=== PATIENT | male | born 2000 | race African-American/Black ===

== ENCOUNTER 2023-07-29 13:39 | Emergency (ER) | payer OTHER ==
[2023-07-29 14:12] VITALS: BP 115/75; PULSE 118; RESP 22; TEMP 99.9; BMI 26.7
[2023-07-29] MEDS ORDERED: KETOROLAC TROMETHAMINE 30 MG/1 ML VIAL IM ONE (14:42)
[2023-07-29] MEDS ORDERED: KETOROLAC TROMETHAMINE 30 MG/1 ML VIAL ONE (14:43)
== END 2023-07-29 16:20 | disposition home or self-care (01) ==
LOC: JERFT 13:39
PROC: 3E0233Z Introduction of Anti-inflammatory into Muscle, Percutaneous Approach (ICD-10-PCS; principal; 2023-07-29)
DX: R05.9 Cough, unspecified (principal); R09.89 Other specified symptoms and signs involving the circulatory and respiratory systems; J02.9 Acute pharyngitis, unspecified; M79.10 Myalgia, unspecified site; R68.83 Chills (without fever); J06.9 Acute upper respiratory infection, unspecified; Z20.822 Contact with and (suspected) exposure to COVID-19
CPT/HCPCS: 0241U-QW; 71046-TC-FY; 87651; 99284-25

== ENCOUNTER 2023-08-03 11:36 | Inpatient (IN) | payer OTHER ==
[2023-08-03] MEDS ORDERED: SODIUM CHLORIDE 0.9% 500 ML INFUS.BAG IV ONE (14:01)
[2023-08-03 15:24] LABS: VENOUS BASE EXCESS -16.1 mmol/L (-2-2); VENOUS O2 SATURATION 44.9 % (70-80); VENOUS PCO2 29.2 mmHg (38-52)
[2023-08-03 15:26] LABS: VENOUS PH 7.18 (7.310-7.410)
[2023-08-03 15:36] LABS: HEMATOCRIT 46.9 % (35.4-49); HEMOGLOBIN 15.8 GM/dL (11.7-16.9); MCH 27.9 pg (25.7-33.7); MCHC 33.7 g/dl (32.0-35.9); MEAN CELL VOLUME 82.9 fl (80-96); MEAN PLT VOLUME 8.8 fl (7.5-11.1); PLATELET COUNT 293 10^3/uL (134-434); RBC 5.66 M/mm3 (4.00-5.60); WHITE BLOOD COUNT 14.4 K/mm3 (4.0-10.0)
[2023-08-03] MEDS ORDERED: SODIUM CHLORIDE 1,000 ML IV STA (15:53)
[2023-08-03] MEDS ORDERED: SODIUM CHLORIDE 0.9%/KCL 20 MEQ/1,000 ML INFUS.BAG IV SCH (16:00)
[2023-08-03 16:04] LABS: POTASSIUM 4.1 mmol/L (3.5-5.1)
[2023-08-03 16:06] LABS: CALCIUM 9.3 mg/dL (8.5-10.1)
[2023-08-03 16:07] LABS: ALBUMIN 2.3 g/dl (3.4-5.0); BLOOD UREA NITROGEN 15.6 mg/dL (7-18)
[2023-08-03 16:10] LABS: CREATININE 1.5 mg/dL (0.55-1.3)
[2023-08-03 16:12] LABS: BILIRUBIN,TOTAL 1.1 mg/dL (0.2-1); TOT PROT 7.6 g/dl (6.4-8.2)
[2023-08-03 16:19] LABS: ANISOCYTOSIS 1+; MACROCYTOSIS 0
[2023-08-03 16:31] LABS: MAGNESIUM 1.8 mg/dL (1.8-2.4)
[2023-08-03 16:35] LABS: PHOSPHOROUS 2.2 mg/dL (2.5-4.9)
[2023-08-03] MEDS ORDERED: MAGNESIUM SULFATE IN WATER 2 GM/50 ML IVPB IVPB ONE ×2 (16:40→17:24)
[2023-08-03] MEDS ORDERED: VANCOMYCIN 1,000 MG in DEXTROSE 5%-WATER - 250 ML IVPB ONE (17:43)
[2023-08-03] MEDS ORDERED: PIPERACILLIN/TAZOB 4.5 GM 4.5 GM in DEXTROSE 5%-WATER 100 ML IVPB ONE (17:43)
[2023-08-03] MEDS ORDERED: VANCOMYCIN 1 GRAM (PRE-DOCKED) 1,000 MG/250 ML BAG IVPB ONE (18:16)
[2023-08-03] MEDS ORDERED: PIPERACILLIN/TAZOB 3.375 GM 3.375 GM/50 ML BAG IVPB ONE (18:16)
[2023-08-03] MEDS ORDERED: PIPERACILLIN/TAZOB 4.5 GM 4.5 GM/100 ML BAG IVPB ONE (18:22)
[2023-08-03 19:01] LABS: VENOUS BASE EXCESS -19.3 mmol/L (-2-2); VENOUS O2 SATURATION 79.9 % (70-80); VENOUS PCO2 24.7 mmHg (38-52)
[2023-08-03 19:08] LABS: VENOUS PH 7.132 (7.310-7.410)
[2023-08-03] MEDS ORDERED: KCL 10 MEQ IVPB 20 MEQ/200 ML INFUS.BAG IVPB ONE (19:17)
[2023-08-03 19:22] LABS: CHLORIDE 98 mmol/L (98-107); SODIUM 125 mmol/L (136-145)
[2023-08-03 19:25] LABS: CALCIUM 8.7 mg/dL (8.5-10.1); CO2 9 mmol/L (21-32)
[2023-08-03 19:26] LABS: BLOOD UREA NITROGEN 15.9 mg/dL (7-18); GLUCOSE,RANDOM 315 mg/dL (74-106); MAGNESIUM 2.3 mg/dL (1.8-2.4)
[2023-08-03] MEDS: KCL 10 MEQ IVPB 10 MEQ/100 ML INFUS.BAG IVPB SCH ×2 (19:26→21:43)
[2023-08-03 19:29] LABS: CREATININE 1.5 mg/dL (0.55-1.3)
[2023-08-03] MEDS ORDERED: LACTATED RINGERS SOLUTION 1000 ML INFUS.BAG IV ONE ×2 (19:31→20:13)
[2023-08-03 19:34] LABS: ANION GAP 17 mmol/L (4-13); POTASSIUM 6.2 mmol/L (3.5-5.1)
[2023-08-03] MEDS ORDERED: ALBUTEROL SO4 2.5/IPRATROPIUM 0.5 INH SOL 3 ML VIAL.NEB. NEB ONE (20:09)
[2023-08-03] MEDS: ALBUTEROL SO4 2.5/IPRATROPIUM 0.5 INH SOL 3 ML VIAL.NEB. NEB PRN (20:17)
[2023-08-03] MEDS ORDERED: DEXTROSE 50%-WATER - 25 GM/50 ML VIAL IVPUSH PRN (20:26)
[2023-08-03] MEDS ORDERED: INSULIN REGULAR 100 UNITS in SODIUM CHLORIDE 99 ML IVPB SCH (20:30)
[2023-08-03 21:16] LABS: BLOOD UREA NITROGEN 16.1 mg/dL (7-18); CALCIUM 8.1 mg/dL (8.5-10.1)
[2023-08-03 21:20] LABS: CREATININE 1.3 mg/dL (0.55-1.3)
[2023-08-03] MEDS ORDERED: INSULIN REGULAR HUMAN 100 UNITS/ML *VIAL ONE (21:25)
[2023-08-03] MEDS: CHLORHEXIDINE GLUCONATE 4% CLEANSER FOR DECOLONIZATION TP SCH (21:44)
[2023-08-03] MEDS ORDERED: OSELTAMIVIR PHOSPHATE 45 MG CAPSULE PO SCH (22:00)
[2023-08-03] MEDS: MUPIROCIN 2% TOPICAL OINTMENT FOR DECOLONIZATION NS SCH (22:17)
[2023-08-03] MEDS ORDERED: SODIUM CHLORIDE 1,000 ML IV SCH (22:30)
[2023-08-04] MEDS: D5-1/2NS+20 MEQ KCL - 20 MEQ/1,000 ML INFUS.BAG IV SCH ×2 (00:47→08:20)
[2023-08-04] MEDS: ALBUTEROL SO4 2.5/IPRATROPIUM 0.5 INH SOL 3 ML VIAL.NEB. NEB PRN (01:00)
[2023-08-04 02:31] LABS: CHLORIDE 102 mmol/L (98-107); POTASSIUM 3.6 mmol/L (3.5-5.1); SODIUM 133 mmol/L (136-145)
[2023-08-04 02:33] LABS: BLOOD UREA NITROGEN 13.6 mg/dL (7-18); GLUCOSE,RANDOM 205 mg/dL (74-106); MAGNESIUM 1.7 mg/dL (1.8-2.4)
[2023-08-04 02:36] LABS: CREATININE 1.2 mg/dL (0.55-1.3)
[2023-08-04 02:39] LABS: ANION GAP 18 mmol/L (4-13); CO2 14 mmol/L (21-32); PHOSPHOROUS 0.9 mg/dL (2.5-4.9)
[2023-08-04] MEDS ORDERED: MAGNESIUM SULFATE IN WATER 2 GM/50 ML IVPB IVPB ONE (03:45)
[2023-08-04] MEDS: KCL 10 MEQ IVPB 10 MEQ/100 ML INFUS.BAG IVPB SCH ×6 (03:54→12:15)
[2023-08-04] MEDS ORDERED: POTASSIUM PHOSPHATE 30 MM in SODIUM CHLORIDE 250 ML IVPB ONE ×2 (05:00→13:30)
[2023-08-04 06:28] LABS: HEMATOCRIT 36.6 % (35.4-49); HEMOGLOBIN 12.6 GM/dL (11.7-16.9); MCH 27.4 pg (25.7-33.7); MCHC 34.4 g/dl (32.0-35.9); MEAN CELL VOLUME 79.7 fl (80-96); MEAN PLT VOLUME 7.8 fl (7.5-11.1); PLATELET COUNT 269 10^3/uL (134-434); RDW 14.6 % (11.9-15.9); WHITE BLOOD COUNT 12.4 K/mm3 (4.0-10.0)
[2023-08-04 06:45] LABS: POTASSIUM 3.6 mmol/L (3.5-5.1)
[2023-08-04 06:46] LABS: CALCIUM 8.1 mg/dL (8.5-10.1)
[2023-08-04 06:47] LABS: BLOOD UREA NITROGEN 11.2 mg/dL (7-18)
[2023-08-04 06:50] LABS: CREATININE 1.1 mg/dL (0.55-1.3)
[2023-08-04] MEDS: MUPIROCIN 2% TOPICAL OINTMENT FOR DECOLONIZATION NS SCH ×2 (09:21→21:33)
[2023-08-04 09:58] LABS: ANISOCYTOSIS 0; MACROCYTOSIS 0
[2023-08-04] MEDS ORDERED: D5-1/2NS+20 MEQ KCL - 20 MEQ/1,000 ML INFUS.BAG IV SCH (10:02)
[2023-08-04 11:08] LABS: EPI CELLS 14 /uL (0-25.1); HYALINE CASTS 3 /uL (0-3.1); PH,URINE 5.5 (5.0-8.0); URINE APPEARANCE CLEAR; URINE BACTERIA 0 /uL (0-1359); URINE BILIRUBIN NEGATIVE (NEGATIVE); URINE COLOR YELLOW; URINE GLUCOSE (UA) 3+ (NEGATIVE); URINE KETONE 3+ (NEGATIVE); URINE LEUK ESTERASE NEGATIVE (NEGATIVE); URINE NITRITE NEGATIVE (NEGATIVE); URINE PROTEIN 1+ (NEGATIVE); URINE RBC 40 /uL (0-23.9)
[2023-08-04 11:17] LABS: CHLORIDE 106 mmol/L (98-107); POTASSIUM 3.5 mmol/L (3.5-5.1); SODIUM 135 mmol/L (136-145)
[2023-08-04 11:20] LABS: CALCIUM 8.4 mg/dL (8.5-10.1)
[2023-08-04 11:21] LABS: ANION GAP 10 mmol/L (4-13); CO2 19 mmol/L (21-32); GLUCOSE,RANDOM 194 mg/dL (74-106); MAGNESIUM 1.8 mg/dL (1.8-2.4)
[2023-08-04 11:23] LABS: SGPT/ALT 32 U/L (13-61)
[2023-08-04 11:24] LABS: CREATININE 1.1 mg/dL (0.55-1.3); SGOT/AST 59 U/L (15-37)
[2023-08-04 11:25] LABS: BILIRUBIN,TOTAL 0.8 mg/dL (0.2-1)
[2023-08-04 11:28] LABS: BLOOD UREA NITROGEN 10.1 mg/dL (7-18)
[2023-08-04 11:33] LABS: URINE WBC 89.3 /uL (0-25.8)
[2023-08-04 11:44] LABS: ALBUMIN 1.7 g/dl (3.4-5.0); ALK PHOS 266 U/L (45-117); PHOSPHOROUS 0.7 mg/dL (2.5-4.9); TOT PROT 5.4 g/dl (6.4-8.2)
[2023-08-04] MEDS ORDERED: POTASSIUM PHOSPHATE 30 MM in SODIUM CHLORIDE 500 ML IVPB ONE (11:53)
[2023-08-04] MEDS: INSULIN (LEVEMIR) 100 UNITS/ML UNITS SQ SCH ×2 (15:44→21:33)
[2023-08-04 16:09] LABS: CHLORIDE 109 mmol/L (98-107); POTASSIUM 3.6 mmol/L (3.5-5.1); SODIUM 138 mmol/L (136-145)
[2023-08-04 16:11] LABS: ALBUMIN 1.7 g/dl (3.4-5.0); CALCIUM 8.2 mg/dL (8.5-10.1)
[2023-08-04 16:12] LABS: ANION GAP 8 mmol/L (4-13); BLOOD UREA NITROGEN 8.2 mg/dL (7-18); CO2 21 mmol/L (21-32); GLUCOSE,RANDOM 189 mg/dL (74-106); MAGNESIUM 1.7 mg/dL (1.8-2.4)
[2023-08-04 16:15] LABS: SGOT/AST 107 U/L (15-37); SGPT/ALT 42 U/L (13-61)
[2023-08-04 16:17] LABS: BILIRUBIN,TOTAL 0.8 mg/dL (0.2-1); TOT PROT 5.1 g/dl (6.4-8.2)
[2023-08-04 16:18] LABS: ALK PHOS 280 U/L (45-117)
[2023-08-04 16:22] LABS: PHOSPHOROUS 1.1 mg/dL (2.5-4.9)
[2023-08-04] MEDS ORDERED: MAGNESIUM SULF 50% (8.12 MEQ/2 ML-1 GM VIAL) IVPB ONE (16:48)
[2023-08-04] MEDS: ACETAMINOPHEN 1000 MG/100 ML BAG IVPB PRN (16:49)
[2023-08-04] MEDS: NAPH,MB-DB/K PH,MBDB POWDER PACKET PO SCH ×2 (17:22→21:33)
[2023-08-04] MEDS ORDERED: INSULIN (NOVOLOG) ASPART 100 UNITS/ML 10ML VIAL ONE (17:44)
[2023-08-04] MEDS: INSULIN ASPART SLIDING SCALE (NOVOLOG) 1 VIAL SQ SCH ×2 (17:45→21:31)
[2023-08-04] MEDS: LACTATED RINGERS SOLUTION 1,000 ML/1,000 ML INFUS.BAG IV SCH (18:30)
[2023-08-04] MEDS: CHLORHEXIDINE GLUCONATE 4% CLEANSER FOR DECOLONIZATION TP SCH (21:33)
[2023-08-04] MEDS ORDERED: INSULIN (LEVEMIR) 100 UNITS/ML UNITS SQ SCH (22:00)
[2023-08-05] MEDS: INSULIN ASPART SLIDING SCALE (NOVOLOG) 1 VIAL SQ SCH ×6 (02:15→21:07)
[2023-08-05] MEDS: INSULIN (LEVEMIR) 100 UNITS/ML UNITS SQ SCH ×2 (05:59→21:08)
[2023-08-05] MEDS: NAPH,MB-DB/K PH,MBDB POWDER PACKET PO SCH ×3 (05:59→21:07)
[2023-08-05 07:25] LABS: HEMATOCRIT 37.5 % (35.4-49); MCH 27.7 pg (25.7-33.7); MCHC 34.6 g/dl (32.0-35.9); MEAN PLT VOLUME 8.5 fl (7.5-11.1); PLATELET COUNT 271 10^3/uL (134-434); RBC 4.68 M/mm3 (4.00-5.60); WHITE BLOOD COUNT 13.2 K/mm3 (4.0-10.0)
[2023-08-05 07:45] LABS: CHLORIDE 110 mmol/L (98-107); POTASSIUM 3.3 mmol/L (3.5-5.1); SODIUM 140 mmol/L (136-145)
[2023-08-05 07:53] LABS: ALBUMIN 1.5 g/dl (3.4-5.0); CALCIUM 8.5 mg/dL (8.5-10.1)
[2023-08-05 07:54] LABS: ANION GAP 8 mmol/L (4-13); BLOOD UREA NITROGEN 9.3 mg/dL (7-18); CO2 22 mmol/L (21-32); CREATININE 0.8 mg/dL (0.55-1.3); GLUCOSE,RANDOM 199 mg/dL (74-106); SGOT/AST 92 U/L (15-37); SGPT/ALT 51 U/L (13-61)
[2023-08-05 07:55] LABS: TOT PROT 5.2 g/dl (6.4-8.2)
[2023-08-05 07:58] LABS: BILIRUBIN,TOTAL 0.6 mg/dL (0.2-1)
[2023-08-05 07:59] LABS: ALK PHOS 303 U/L (45-117)
[2023-08-05 08:00] LABS: MAGNESIUM 1.5 mg/dL (1.8-2.4); PHOSPHOROUS 1.1 mg/dL (2.5-4.9)
[2023-08-05] MEDS ORDERED: MAGNESIUM 2GM/50ML STERILE WATER IVPB IVPB ONE (08:02)
[2023-08-05] MEDS ORDERED: POTASSIUM PHOSPHATE 30 MM in SODIUM CHLORIDE 500 ML IVPB ONE (09:00)
[2023-08-05 09:10] LABS: ANISOCYTOSIS 0; MACROCYTOSIS 0
[2023-08-05] MEDS: MUPIROCIN 2% TOPICAL OINTMENT FOR DECOLONIZATION NS SCH ×2 (09:50→21:08)
[2023-08-05] MEDS: ACETAMINOPHEN 1000 MG/100 ML BAG IVPB PRN (21:07)
[2023-08-05] MEDS: LACTATED RINGERS SOLUTION 1,000 ML/1,000 ML INFUS.BAG IV SCH (21:07)
[2023-08-05] MEDS: CHLORHEXIDINE GLUCONATE 4% CLEANSER FOR DECOLONIZATION TP SCH (21:08)
[2023-08-06] MEDS: INSULIN (LEVEMIR) 100 UNITS/ML UNITS SQ SCH ×2 (06:14→21:50)
[2023-08-06] MEDS: NAPH,MB-DB/K PH,MBDB POWDER PACKET PO SCH ×3 (06:14→21:48)
[2023-08-06] MEDS: INSULIN ASPART SLIDING SCALE (NOVOLOG) 1 VIAL SQ SCH ×4 (06:15→21:56)
[2023-08-06 08:14] LABS: HEMATOCRIT 36.3 % (35.4-49); HEMOGLOBIN 12.7 GM/dL (11.7-16.9); MCH 27.5 pg (25.7-33.7); MCHC 34.9 g/dl (32.0-35.9); MEAN PLT VOLUME 8.5 fl (7.5-11.1); PLATELET COUNT 275 10^3/uL (134-434); RDW 14.7 % (11.9-15.9); WHITE BLOOD COUNT 12.9 K/mm3 (4.0-10.0)
[2023-08-06 08:31] LABS: POTASSIUM 3.4 mmol/L (3.5-5.1)
[2023-08-06 08:35] LABS: CALCIUM 8.2 mg/dL (8.5-10.1)
[2023-08-06 08:36] LABS: ALBUMIN 1.5 g/dl (3.4-5.0); BLOOD UREA NITROGEN 9.3 mg/dL (7-18); MAGNESIUM 1.4 mg/dL (1.8-2.4)
[2023-08-06 08:38] LABS: CREATININE 0.6 mg/dL (0.55-1.3); PHOSPHOROUS 2.6 mg/dL (2.5-4.9)
[2023-08-06 08:39] LABS: TOT PROT 5.2 g/dl (6.4-8.2)
[2023-08-06 08:40] LABS: BILIRUBIN,TOTAL 0.8 mg/dL (0.2-1)
[2023-08-06 08:58] LABS: ANISOCYTOSIS 0; MACROCYTOSIS 0
[2023-08-06] MEDS ORDERED: MAGNESIUM 2GM/50ML STERILE WATER IVPB IVPB ONE ×2 (09:31→09:49)
[2023-08-06] MEDS ORDERED: POTASSIUM CHLORIDE TABS 20 MEQ TABLET.ER (FP) PO ONE (09:49)
[2023-08-06] MEDS: MUPIROCIN 2% TOPICAL OINTMENT FOR DECOLONIZATION NS SCH (10:15)
[2023-08-06] MEDS: OSELTAMIVIR PHOSPHATE 75 MG CAPSULE PO SCH ×2 (12:32→21:48)
[2023-08-06] MEDS: ACETAMINOPHEN 1000 MG/100 ML BAG IVPB PRN (15:23)
[2023-08-06 17:20] LABS: POTASSIUM 3.3 mmol/L (3.5-5.1)
[2023-08-06 17:22] LABS: ALBUMIN 1.6 g/dl (3.4-5.0); BLOOD UREA NITROGEN 7.6 mg/dL (7-18); CALCIUM 8.2 mg/dL (8.5-10.1)
[2023-08-06 17:23] LABS: MAGNESIUM 1.7 mg/dL (1.8-2.4)
[2023-08-06 17:25] LABS: CREATININE 0.7 mg/dL (0.55-1.3)
[2023-08-06 17:27] LABS: BILIRUBIN,TOTAL 0.7 mg/dL (0.2-1); TOT PROT 5.3 g/dl (6.4-8.2)
[2023-08-06] MEDS ORDERED: DEXTROSE 50%-WATER 25 GM/50 ML DISP.SYRIN IVPUSH PRN (18:58)
[2023-08-06] MEDS ORDERED: ALBUTEROL SO4 2.5/IPRATROPIUM 0.5 INH SOL 3 ML VIAL.NEB. NEB PRN (18:58)
[2023-08-07] MEDS: NAPH,MB-DB/K PH,MBDB POWDER PACKET PO SCH ×2 (06:55→13:25)
[2023-08-07] MEDS: INSULIN (LEVEMIR) 100 UNITS/ML UNITS SQ SCH ×2 (07:03→22:35)
[2023-08-07] MEDS: INSULIN ASPART SLIDING SCALE (NOVOLOG) 1 VIAL SQ SCH ×4 (07:03→22:36)
[2023-08-07 10:04] LABS: HEMATOCRIT 35.1 % (35.4-49); MCH 26.9 pg (25.7-33.7); MCHC 34.2 g/dl (32.0-35.9); MEAN CELL VOLUME 78.6 fl (80-96); PLATELET COUNT 262 10^3/uL (134-434); RBC 4.47 M/mm3 (4.00-5.60); RDW 14.4 % (11.9-15.9); WHITE BLOOD COUNT 13.5 K/mm3 (4.0-10.0)
[2023-08-07 10:18] LABS: CHLORIDE 97 mmol/L (98-107); SODIUM 136 mmol/L (136-145)
[2023-08-07 10:22] LABS: ALBUMIN 1.4 g/dl (3.4-5.0); BLOOD UREA NITROGEN 7.5 mg/dL (7-18); CALCIUM 7.8 mg/dL (8.5-10.1); CO2 27 mmol/L (21-32); GLUCOSE,RANDOM 255 mg/dL (74-106); MAGNESIUM 1.4 mg/dL (1.8-2.4)
[2023-08-07 10:25] LABS: CREATININE 0.7 mg/dL (0.55-1.3); PHOSPHOROUS 2.4 mg/dL (2.5-4.9); SGOT/AST 45 U/L (15-37); SGPT/ALT 42 U/L (13-61)
[2023-08-07 10:27] LABS: BILIRUBIN,TOTAL 0.7 mg/dL (0.2-1)
[2023-08-07 10:41] LABS: ALK PHOS 255 U/L (45-117); ANION GAP 12 mmol/L (4-13); POTASSIUM 2.9 mmol/L (3.5-5.1)
[2023-08-07] MEDS: OSELTAMIVIR PHOSPHATE 75 MG CAPSULE PO SCH ×2 (10:55→22:35)
[2023-08-07] MEDS: ENOXAPARIN NA (PORCINE) 40 MG/0.4 ML DISP.SYRIN SQ SCH (10:55)
[2023-08-07] MEDS ORDERED: INSULIN (NOVOLOG) ASPART 100 UNITS/ML 10ML VIAL ONE ×2 (11:53→21:42)
[2023-08-07] MEDS: INSULIN (NOVOLOG) ASPART 100 UNITS/ML 10ML VIAL SQ SCH ×2 (12:01→17:25)
[2023-08-07] MEDS ORDERED: POTASSIUM CHLORIDE TABS 20 MEQ TABLET.ER (FP) PO ONE (12:11)
[2023-08-07] MEDS ORDERED: NAPH,MB-DB/K PH,MBDB POWDER PACKET PO ONE (12:13)
[2023-08-07] MEDS ORDERED: MAGNESIUM SULFATE IN WATER 4 GM/50 ML BAG IVPB ONE (13:30)
[2023-08-07] MEDS ORDERED: MAGNESIUM SULFATE IN WATER 2 GM/50 ML IVPB IVPB ONE ×2 (13:31→14:30)
[2023-08-07] MEDS: KCL 10 MEQ IVPB 10 MEQ/100 ML INFUS.BAG IVPB SCH ×2 (13:35→15:20)
[2023-08-07 17:34] LABS: POTASSIUM 3.2 mmol/L (3.5-5.1)
[2023-08-07 17:35] LABS: MAGNESIUM 1.7 mg/dL (1.8-2.4)
[2023-08-07] MEDS: ACETAMINOPHEN 1000 MG/100 ML BAG IVPB PRN (18:57)
[2023-08-08] MEDS: INSULIN ASPART SLIDING SCALE (NOVOLOG) 1 VIAL SQ SCH ×4 (06:38→22:34)
[2023-08-08] MEDS: INSULIN (LEVEMIR) 100 UNITS/ML UNITS SQ SCH ×2 (06:38→22:33)
[2023-08-08] MEDS: INSULIN (NOVOLOG) ASPART 100 UNITS/ML 10ML VIAL SQ SCH ×3 (06:38→17:28)
[2023-08-08] MEDS ORDERED: POTASSIUM CHLORIDE TABS 20 MEQ TABLET.ER (FP) PO SCH (07:20)
[2023-08-08] MEDS ORDERED: MAGNESIUM SULFATE IN WATER 2 GM/50 ML IVPB IVPB ONE ×2 (07:21→12:00)
[2023-08-08 07:52] LABS: BASO % 0.6 % (0-2.0); EOS % 1.1 % (0-4.5); HEMATOCRIT 39.7 % (35.4-49); HEMOGLOBIN 13.3 GM/dL (11.7-16.9); LYMPH % 14.8 % (8-40); MCH 26.8 pg (25.7-33.7); MCHC 33.5 g/dl (32.0-35.9); MEAN CELL VOLUME 80.1 fl (80-96); MEAN PLT VOLUME 8.5 fl (7.5-11.1); MONO % 9.4 % (3.8-10.2); NEUT % 74.1 % (42.8-82.8); PLATELET COUNT 226 10^3/uL (134-434); RBC 4.95 M/mm3 (4.00-5.60); RDW 14.6 % (11.9-15.9); WHITE BLOOD COUNT 11.4 K/mm3 (4.0-10.0)
[2023-08-08 08:06] LABS: POTASSIUM 3.3 mmol/L (3.5-5.1)
[2023-08-08 08:07] LABS: CALCIUM 7.7 mg/dL (8.5-10.1)
[2023-08-08 08:08] LABS: BLOOD UREA NITROGEN 6.9 mg/dL (7-18); MAGNESIUM 1.4 mg/dL (1.8-2.4)
[2023-08-08 08:10] LABS: CREATININE 0.5 mg/dL (0.55-1.3)
[2023-08-08] MEDS: ENOXAPARIN NA (PORCINE) 40 MG/0.4 ML DISP.SYRIN SQ SCH (09:24)
[2023-08-08] MEDS: OSELTAMIVIR PHOSPHATE 75 MG CAPSULE PO SCH ×2 (09:25→22:32)
[2023-08-08] MEDS ORDERED: POTASSIUM CHLORIDE TABS 20 MEQ TABLET.ER (FP) PO ONE (15:30)
[2023-08-08] MEDS ORDERED: SENNOSIDES 8.6MG TABLET (FP) PO PRN (16:03)
[2023-08-08] MEDS ORDERED: INSULIN (NOVOLOG) ASPART 100 UNITS/ML 10ML VIAL ONE (21:52)
[2023-08-09] MEDS: INSULIN (LEVEMIR) 100 UNITS/ML UNITS SQ SCH ×2 (07:08→22:08)
[2023-08-09] MEDS: INSULIN ASPART SLIDING SCALE (NOVOLOG) 1 VIAL SQ SCH ×4 (07:09→22:09)
[2023-08-09] MEDS: INSULIN (NOVOLOG) ASPART 100 UNITS/ML 10ML VIAL SQ SCH ×3 (07:09→16:40)
[2023-08-09] MEDS ORDERED: INSULIN (LEVEMIR) 100 UNITS/ML UNITS SQ SCH (07:14)
[2023-08-09] MEDS ORDERED: INSULIN (LEVEMIR) 100 UNITS/ML UNITS SQ ONE (08:55)
[2023-08-09] MEDS ORDERED: INSULIN (NOVOLOG) ASPART 100 UNITS/ML 10ML VIAL ONE ×3 (08:56→21:16)
[2023-08-09 09:30] LABS: BASO % 0.6 % (0-2.0); EOS % 2.2 % (0-4.5); HEMATOCRIT 38.4 % (35.4-49); HEMOGLOBIN 12.8 GM/dL (11.7-16.9); LYMPH % 26.4 % (8-40); MCH 27.3 pg (25.7-33.7); MCHC 33.4 g/dl (32.0-35.9); MEAN CELL VOLUME 81.6 fl (80-96); MEAN PLT VOLUME 8.3 fl (7.5-11.1); MONO % 12.3 % (3.8-10.2); NEUT % 58.5 % (42.8-82.8); PLATELET COUNT 263 10^3/uL (134-434); RDW 14.6 % (11.9-15.9); WHITE BLOOD COUNT 8.7 K/mm3 (4.0-10.0)
[2023-08-09] MEDS: OSELTAMIVIR PHOSPHATE 75 MG CAPSULE PO SCH ×2 (09:48→22:07)
[2023-08-09] MEDS: ENOXAPARIN NA (PORCINE) 40 MG/0.4 ML DISP.SYRIN SQ SCH (09:48)
[2023-08-09 09:51] LABS: POTASSIUM 4.1 mmol/L (3.5-5.1)
[2023-08-09 10:06] LABS: BLOOD UREA NITROGEN 16.2 mg/dL (7-18); CALCIUM 8.7 mg/dL (8.5-10.1)
[2023-08-09 10:08] LABS: MAGNESIUM 1.3 mg/dL (1.8-2.4)
[2023-08-09 10:09] LABS: PHOSPHOROUS 2.8 mg/dL (2.5-4.9)
[2023-08-09 10:10] LABS: CREATININE 0.7 mg/dL (0.55-1.3)
[2023-08-09] MEDS ORDERED: MAGNESIUM SULFATE IN WATER 2 GM/50 ML IVPB IVPB ONE ×2 (11:30→14:30)
[2023-08-09] MEDS: ACETAMINOPHEN 1000 MG/100 ML BAG IVPB PRN (12:05)
[2023-08-09 13:58] VITALS: BMI 26.6
[2023-08-09] MEDS: MAGNESIUM OXIDE 400 MG TABLET (FP) PO SCH (22:07)
[2023-08-10 05:57] VITALS: RESP 18
[2023-08-10] MEDS: INSULIN (NOVOLOG) ASPART 100 UNITS/ML 10ML VIAL SQ SCH ×3 (06:31→16:47)
[2023-08-10] MEDS: INSULIN (LEVEMIR) 100 UNITS/ML UNITS SQ SCH (06:31)
[2023-08-10] MEDS: INSULIN ASPART SLIDING SCALE (NOVOLOG) 1 VIAL SQ SCH ×4 (06:32→16:47)
[2023-08-10] MEDS ORDERED: INSULIN (NOVOLOG) ASPART 100 UNITS/ML 10ML VIAL ONE (07:39)
[2023-08-10] MEDS ORDERED: INSULIN (LEVEMIR) 100 UNITS/ML UNITS SQ ONE (07:40)
[2023-08-10 09:56] LABS: POTASSIUM 3.9 mmol/L (3.5-5.1)
[2023-08-10 10:02] LABS: BLOOD UREA NITROGEN 11.2 mg/dL (7-18); CALCIUM 8.7 mg/dL (8.5-10.1); MAGNESIUM 1.2 mg/dL (1.8-2.4)
[2023-08-10 10:05] LABS: CREATININE 0.6 mg/dL (0.55-1.3)
[2023-08-10] MEDS: OSELTAMIVIR PHOSPHATE 75 MG CAPSULE PO SCH (10:21)
[2023-08-10] MEDS: MAGNESIUM OXIDE 400 MG TABLET (FP) PO SCH (10:21)
[2023-08-10] MEDS: ENOXAPARIN NA (PORCINE) 40 MG/0.4 ML DISP.SYRIN SQ SCH (10:21)
[2023-08-10] MEDS ORDERED: MAGNESIUM SULFATE IN WATER 2 GM/50 ML IVPB IVPB ONE (10:28)
[2023-08-10 14:37] VITALS: BP 113/62; PULSE 84; TEMP 98.1
== END 2023-08-10 18:34 | disposition home or self-care (01) | DRG 420 ==
LOC: JERFT 11:36 → JER 11:36 → JERBED 19:33 → JICU 21:16 → J7W 08-06 17:55
PROVIDERS: ADMIT Internal Medicine Pulmonary Disease; ATTEND Nurse Practitioner Acute Care
DX: E11.10 Type 2 diabetes mellitus with ketoacidosis without coma (principal); N17.9 Acute kidney failure, unspecified; J10.1 Influenza due to other identified influenza virus with other respiratory manifestations; E83.51 Hypocalcemia; E83.42 Hypomagnesemia; E87.1 Hypo-osmolality and hyponatremia; E87.6 Hypokalemia; E86.0 Dehydration; D72.829 Elevated white blood cell count, unspecified
CPT/HCPCS: 0241U-QW; 36415; 71046-TC-FY; 80048; 80053; 81003; 82010; 82803; 82962; 83036; 83605; 83690; 83735; 84100; 84132; 84484; 85025; 85027; 87040; 87651; 93005; 93010; 94640; 99285-25

== ENCOUNTER 2024-12-01 17:09 | Emergency (ER) | payer OTHER ==
[2024-12-01 17:17] VITALS: BP 138/88; PULSE 99; RESP 16; TEMP 98.5; BMI 22.1
== END 2024-12-01 18:15 | disposition home or self-care (01) ==
LOC: JER 17:09
DX: K64.9 Unspecified hemorrhoids (principal); K62.89 Other specified diseases of anus and rectum
CPT/HCPCS: 99283-25

== ENCOUNTER 2025-01-04 21:54 | Emergency (ER) | payer OTHER ==
[2025-01-04 22:02] VITALS: RESP 20; TEMP 98.6; BMI 27.3
[2025-01-04 23:08] VITALS: BP 151/87; PULSE 113
[2025-01-05] MEDS: DOXYCYCLINE HYCLATE 100 MG CAPSULE PO ONE (00:20)
[2025-01-05] MEDS ORDERED: cefTRIAXone SODIUM 1 GM VIAL ONE (00:22)
[2025-01-05] MEDS ORDERED: DOXYCYCLINE HYCLATE 100 MG TABLET PO ONE (00:22)
[2025-01-05 01:30] LABS: PH,URINE 5.5 (5.0-8.0); URINE APPEARANCE CLEAR; URINE BILIRUBIN NEGATIVE (NEGATIVE); URINE COLOR YELLOW; URINE GLUCOSE (UA) 3+ (NEGATIVE); URINE KETONE 1+ (NEGATIVE); URINE LEUK ESTERASE NEGATIVE (NEGATIVE); URINE NITRITE NEGATIVE (NEGATIVE); URINE PROTEIN NEGATIVE (NEGATIVE); URINE UROBILINOGEN 0.2 mg/dL (0.2-1.0)
[2025-01-05 19:20] LABS: HCV DIAGNOSTIC IN-HOUSE W/RFLX NON-REACTIVE (NONREACTIVE)
[2025-01-05 19:22] LABS: HIV INTERPRETATION NEGATIVE (NEGATIVE)
== END 2025-01-05 01:29 | disposition home or self-care (01) ==
LOC: JER 21:54
DX: K62.89 Other specified diseases of anus and rectum (principal); L98.9 Disorder of the skin and subcutaneous tissue, unspecified
CPT/HCPCS: 36415; 81003; 82962; 86780; 86803; 87086; 87389; 87491; 87591; 87593; 87661; 99284-25